=== PATIENT | female | born 1985 | race Caucasian/White ===

== ENCOUNTER 2016-07-09 08:46 | Emergency (ER) | payer BC, OTHER ==
[~2016-07-09] VITALS: Ht 167.6 cm; Wt 80.5 kg
[~2016-07-09 08:46] MED LIST: FERR1TAB23 PO; MTR600X PO; PRENTAB26 PO
[2016-07-09 09:01] VITALS: TEMP 37; Ht 167.6 cm; Wt 80.5 kg
[2016-07-09] MEDS ORDERED: CHOL1000 PO (09:19)
[2016-07-09] MEDS ORDERED: SERT25TA PO (09:19)
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
[2016-07-09] MEDS ORDERED: DIPHTHERIA/TETANUS/PERTUSSIS 0.5 ML SYR/VIAL IM. ONE (11:15)
[2016-07-09 11:36] VITALS: BP 120/75; PULSE 89; O2SAT 99
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
== END 2016-07-09 11:38 | disposition home or self-care (01) ==
LOC: C.EDB 08:47 → C.EDA 11:38
DX: S06.0X0A Concussion without loss of consciousness, initial encounter (principal); S00.81XA Abrasion of other part of head, initial encounter; V43.52XA Car driver injured in collision with other type car in traffic accident, initial encounter; Y92.410 Unspecified street and highway as the place of occurrence of the external cause